=== PATIENT | male | born 1965 | race Native Hawaiian/Other Pacific Islander ===

== ENCOUNTER 2016-10-08 00:03 | Emergency (ER) | payer OTHER ==
[~2016-10-08] VITALS: Ht 190.5 cm; Wt 136.1 kg
[2016-10-08 01:03] VITALS: BP 165/105; TEMP 98.3
== END 2016-10-08 01:05 | disposition home or self-care (01) ==
LOC: ED 00:03
DX: I74.9 Embolism and thrombosis of unspecified artery (principal); I83.91 Asymptomatic varicose veins of right lower extremity; I10 Essential (primary) hypertension
CPT/HCPCS: 36415; 99283